=== PATIENT | female | born 1990 | race Caucasian/White ===

== ENCOUNTER 2019-03-01 14:10 | Emergency (ER) | payer OTHER ==
[~2019-03-01] VITALS: Ht 162.6 cm; Wt 81.8 kg
[2019-03-01 14:12] VITALS: BP 145/83
[2019-03-01] MEDS ORDERED: LIDOcaine 1% 30ml preserv. free vial IJ ONE (14:55)
--- NOTE | 2019-03-01 15:10 | NUR ---
Ring of left ring finger removed and pts girlfriend now in possession.
== END 2019-03-01 16:12 | disposition home or self-care (01) ==
LOC: ER 14:10
DX: S61.213A Laceration without foreign body of left middle finger without damage to nail, initial encounter (principal); S61.215A Laceration without foreign body of left ring finger without damage to nail, initial encounter; W22.8XXA Striking against or struck by other objects, initial encounter; Y93.89 Activity, other specified; Y92.89 Other specified places as the place of occurrence of the external cause; Y99.8 Other external cause status
CPT/HCPCS: 12002; 99284; J3490

== ENCOUNTER 2019-11-19 20:38 | Emergency (ER) | payer OTHER ==
[~2019-11-19] VITALS: Ht 162.6 cm; Wt 86.4 kg
[2019-11-19] MEDS ORDERED: azithromycin 250mg tablet PO ONE (21:40)
[2019-11-19] MEDS ORDERED: ketorolac trometh inj. 60 MG/2 ML VIAL IM ONE (21:40)
[2019-11-19] MEDS ORDERED: AZIT-63 PO (21:41)
[2019-11-19 22:01] VITALS: BP 126/81
== END 2019-11-19 22:04 | disposition home or self-care (01) ==
LOC: ER 20:39
DX: H66.91 Otitis media, unspecified, right ear (principal); R05 Cough; Z98.890 Other specified postprocedural states; Z79.899 Other long term (current) drug therapy
CPT/HCPCS: 96372; 99283; J1885